=== PATIENT | male | born 1955 | race Caucasian/White ===

== ENCOUNTER → 2020-02-19 09:22 | Outpatient (BNVA) | payer OTHER, SELFPAY | PROVIDERS: Referring Provider Dermatology; Visit Provider Dermatology | DX: Z12.83 Encounter for screening for malignant neoplasm of skin (principal); D48.9 Neoplasm of uncertain behavior, unspecified; L82.1 Other seborrheic keratosis; L57.0 Actinic keratosis; D23.9 Other benign neoplasm of skin, unspecified | CPT/HCPCS: 11102; 17004; 88304; 88305; 99203; 99204 ==

== ENCOUNTER → 2020-03-17 09:07 | Outpatient (BNVA) | payer OTHER, SELFPAY | PROVIDERS: Visit Provider Dermatology | DX: C44.91 Basal cell carcinoma of skin, unspecified (principal); C44.41 Basal cell carcinoma of skin of scalp and neck; D48.9 Neoplasm of uncertain behavior, unspecified | CPT/HCPCS: 11622; 12042; 88304 ==

== ENCOUNTER → 2020-03-25 09:14 | Outpatient (BNVA) | payer OTHER, SELFPAY | PROVIDERS: Visit Provider Dermatology | DX: Z48.02 Encounter for removal of sutures (principal) | CPT/HCPCS: 99024 ==

== ENCOUNTER → 2020-05-24 09:29 | Outpatient (BNVA) | payer OTHER, SELFPAY | PROVIDERS: Referring Provider Family Medicine; Visit Provider Specialist | DX: Z47.1 Aftercare following joint replacement surgery (principal); Z96.642 Presence of left artificial hip joint | CPT/HCPCS: 73502 ==

== ENCOUNTER → 2021-01-19 09:27 | Outpatient (BNVA) | payer OTHER, SELFPAY | PROVIDERS: PCP Family Medicine; Referring Provider Dermatology; Visit Provider Specialist | DX: M25.511 Pain in right shoulder (principal); M19.011 Primary osteoarthritis, right shoulder | CPT/HCPCS: 73030 ==